=== PATIENT | male | born 1955 | race African-American/Black ===

== ENCOUNTER 2018-06-08 14:54 | Outpatient (CLI) | payer OTHER ==
--- NOTE | 2018-06-08 18:22 | ULT ---
RIGHT UPPER QUADRANT ULTRASOUND: 06/08/18 Ultrasonography of the right upper quadrant was performed for evaluation of abnormal liver function t ests. The liver is borderline in size measuring 15 cm in oblique sagittal length. It is somewhat echo dense suggesting that there may be diffuse fatty infiltration. No focal hepatic abnormalities were s een. The visible portions of the pancreas appear normal, but not all areas were seen well. The gallbl adder contained no stones or wall thickening. Portal venous flow was towards the liver. The common bi le duct was a normal 5 mm in caliber. The right kidney appears normal and is 10.7 cm in length. IMPRESSION: Borderline hepatic size with possible fatty infiltration. POS: HOME
== END 2018-06-08 14:55 | disposition home or self-care (01) ==
LOC: BURULT 14:54
PROVIDERS: ATTEND Family Medicine
DX: E80.6 Other disorders of bilirubin metabolism (principal); R94.5 Abnormal results of liver function studies
CPT/HCPCS: 76705

== ENCOUNTER 2019-08-07 06:37 | Emergency (ER) | payer SELFPAY ==
[2019-08-07 07:09] LABS: Hemoglobin 12.1 g/dL (14.0-18.0); Mean Corpuscular HGB CONC 31.7 g/dL (32.0-36.0); Mean Platelet Volume 6.8 fL (7.4-10.4); Platelet Count 106 thou/uL (130-400); RBC Distribution Width 11.9 % (11.5-14.5); Red Blood Cell (RBC) Count 3.35 mill/uL (4.70-6.10)
[2019-08-07 07:14] LABS: INR-International Normal Ratio 1.6
[2019-08-07 07:23] LABS: #Eosinphils 0.1 thou/uL (0.0-0.7); #Lymphocytes 1.8 thou/uL (1.20-3.40); #Monocytes 0.4 thou/uL (0.11-0.59); #Neutrophils 2.6 thou/uL (1.40-6.50); %Eosinophils 2.4 % (0.0-10.0); %Lymphocytes 35.8 % (21.0-51.0); %Monocytes 8.1 % (0.0-10.0); %Neutrophils 52.8 % (42.0-75.0); Large Platelets SLIGHT; MDiff Complete? YES; Macrocytosis MARKED = >30 cells (100X) (0-5/hpf)
== END 2019-08-07 07:32 | disposition home or self-care (01) ==
LOC: BURERS 06:37
DX: D69.6 Thrombocytopenia, unspecified (principal); D68.9 Coagulation defect, unspecified; G47.00 Insomnia, unspecified; E78.5 Hyperlipidemia, unspecified; Z79.899 Other long term (current) drug therapy
CPT/HCPCS: 36415; 85025; 85610; 99283

== ENCOUNTER 2019-08-26 05:09 | Emergency (ER) | payer SELFPAY ==
[2019-08-26 05:45] LABS: INR-International Normal Ratio 1.5; PTT 45.6 sec (22.9-36.1); Prothrombin Time 17.8 sec (12.0-14.7)
[2019-08-26 05:50] LABS: Band 1 % (5-11); Eosinophils 2 % (0-10); Hemoglobin 11.6 g/dL (14.0-18.0); Lymphocytes 26 % (21-51); MDiff Complete? YES; Macrocytosis SLIGHT = 6-15 cells (100X) (0-5/hpf); Mean Corpuscular HGB CONC 32.6 g/dL (32.0-36.0); Mean Corpuscular Hemoglobin 36.2 pg (27.0-31.0); Mean Platelet Volume 8.5 fL (7.4-10.4); Monocytes 14 % (0-10); Neutrophil 56 % (42-75); Platelet Count 69 thou/uL (130-400); Platelet Morphology Comment Appears Decreased; RBC Distribution Width 11.7 % (11.5-14.5); Red Blood Cell (RBC) Count 3.21 mill/uL (4.70-6.10); White Blood Cell (WBC) Count 3.9 thou/uL (4.8-10.8)
== END 2019-08-26 06:05 | disposition home or self-care (01) ==
LOC: BURERS 05:09
DX: K70.30 Alcoholic cirrhosis of liver without ascites (principal); K92.2 Gastrointestinal hemorrhage, unspecified; I10 Essential (primary) hypertension; E78.5 Hyperlipidemia, unspecified; G47.00 Insomnia, unspecified; Z79.899 Other long term (current) drug therapy
CPT/HCPCS: 36415; 85025; 85610; 85730; 99283

== ENCOUNTER 2019-11-14 20:13 | Emergency (ER) | payer SELFPAY ==
[2019-11-14] MEDS ORDERED: Lidocaine 1% w/Epinephrine 1:100K 20 ML VIAL ONE (20:30)
[2019-11-14] MEDS ORDERED: Bacitracin 1 PK ONE (20:41)
== END 2019-11-14 20:50 | disposition home or self-care (01) ==
LOC: BURERS 20:13
DX: L98.8 Other specified disorders of the skin and subcutaneous tissue (principal); E78.5 Hyperlipidemia, unspecified; E78.00 Pure hypercholesterolemia, unspecified; I10 Essential (primary) hypertension; G47.00 Insomnia, unspecified; Z79.899 Other long term (current) drug therapy; Z79.82 Long term (current) use of aspirin
CPT/HCPCS: 12001

== ENCOUNTER 2020-04-16 20:43 | Emergency (ER) | payer SELFPAY ==
[~2020-04-16 20:43] MED LIST: Rocuronium Bromide 10 MG/ML (10ML VIAL) ONE
[2020-04-16] MEDS ORDERED: Ketamine 50 MG/ML (10ML VIAL) ONE (21:37)
[2020-04-16] MEDS ORDERED: Fentanyl 100 MCG/2 ML VIAL ONE ×2 (21:40→22:00)
[2020-04-16] MEDS ORDERED: Sodium Bicarb 50 MEQ/50 ML Abboject 8.4% SYRINGE ONE ×2 (21:43→22:15)
[2020-04-16] MEDS ORDERED: Atropine Sulfate 1 mg/10 ml Syringe ONE (21:43)
[2020-04-16] MEDS ORDERED: Calcium Chloride 1 GM/10 ML Abboject SYRINGE ONE (21:43)
[2020-04-16] MEDS ORDERED: Lidocaine 2% 6 ML SYR ONE (21:50)
[2020-04-16] MEDS ORDERED: Lidocaine 2% PF 5 ML VIAL ONE (21:51)
[2020-04-16] MEDS ORDERED: Propofol 1,000 MG/100 ML VIAL IV ONE (22:00)
[2020-04-16 22:07] LABS: Hemoglobin 10.5 g/dL (14.0-18.0); Mean Corpuscular HGB CONC 31.9 g/dL (32.0-36.0); Mean Corpuscular Hemoglobin 26.1 pg (27.0-31.0); Mean Platelet Volume 9.9 fL (7.4-10.4); Platelet Count 283 thou/uL (130-400); RBC Distribution Width 17.9 % (11.5-14.5); Red Blood Cell (RBC) Count 4.02 mill/uL (4.70-6.10); White Blood Cell (WBC) Count 20.6 thou/uL (4.8-10.8)
[2020-04-16 22:09] LABS: INR-International Normal Ratio 2.7; Prothrombin Time 28.9 sec (12.0-14.7)
[2020-04-16 22:15] LABS: ALT (SGPT) 180 U/L (8-55); AST (SGOT) 992 U/L (5-34); Albumin 2.8 g/dL (3.4-4.8); Alkaline Phosphatase 280 U/L (40-110); Anion Gap 36 mmol/L (10-20); BUN (Urea Nitrogen) 78 mg/dL (8.4-25.7); Bilirubin, Total 22.6 mg/dL (0.2-1.2); Calc. Creatinine Clearance 0 mL/min (70-130); Chloride 86 mmol/L (98-107); Globulin 3.2 g/dL (2.4-3.5); Glucose 69 mg/dL (80-115); Potassium 5.3 mmol/L (3.5-5.1); Sodium 126 mmol/L (136-145)
[2020-04-16 22:18] LABS: Calcium 5.3 mg/dL (7.8-10.44); Carbon Dioxide 9 mmol/L (23-31)
[2020-04-16 22:20] LABS: Base Excess-Venous -18.9 mmol/L (-2.0 to 3.0); Bicarbonate (HCO3v) 10.1 mmol/L (22.0-28.0); CO2 Tension (PvCO2) 34.1 mmHg (40.0-50.0); Calcium, Ionized 0.52 mmol/L (1.15-1.33); Chloride 89 mmol/L (98-107); Hemoglobin - Calc 11.8 g/dL (14.0-18.0); Sodium 117 mmol/L (138-145); T. Carbon Dioxide 11.1 mmol/L (22.0-28.0); vO2 Saturation-calc 97.2 % (60.0-85.0)
[2020-04-16] MEDS ORDERED: Cefepime 2 GM VIAL ONE (22:20)
[2020-04-16] MEDS ORDERED: Sodium Chloride 0.9% 100 ML ONE (22:21)
[2020-04-16] MEDS ORDERED: Norepinephrine 4 MG/4 ML VIAL ONE (22:28)
[2020-04-16 22:29] LABS: Anisocytosis SLIGHT = 6-15 cells (100X) (0-5/hpf); Band 3 % (5-11); Burr Cells SLIGHT = 2-5 cells (100X) (0-1/hpf); Lymphocytes 3 % (21-51); MDiff Complete? YES; Monocytes 6 % (0-10); Neutrophil 88 % (42-75); Platelet Morphology Comment Appears Adequate; Poikilocytosis SLIGHT = 6-15 cells (100X) (0-5/hpf); Schistocytes SLIGHT = 2-5 cells (100X) (0-1/hpf)
[2020-04-16 22:36] LABS: CKMB 250.8 ng/mL (0-6.6)
== END 2020-04-16 23:00 | disposition short-term general hospital (02) ==
LOC: BURERS 20:43
DX: I46.9 Cardiac arrest, cause unspecified (principal); E87.2 Acidosis; R74.01 Elevation of levels of liver transaminase levels; E78.5 Hyperlipidemia, unspecified; E78.00 Pure hypercholesterolemia, unspecified; I10 Essential (primary) hypertension; Z79.82 Long term (current) use of aspirin; Z79.899 Other long term (current) drug therapy
CPT/HCPCS: 31500; 36680; 51702; 71045; 80053; 82330; 82553; 82803; 83605; 83880; 84484; 85025; 85610; 92950; 93005; 96365; 96367; 96375; J0461; J0692; J2001; J2704; J3010; J3490